=== PATIENT | female | born 1970 | race Caucasian/White ===

== ENCOUNTER 2017-08-24 11:14 | Emergency (ER) | payer OTHER, MEDICARE ==
[~2017-08-24] VITALS: Ht 167.6 cm; Wt 95.3 kg
[~2017-08-24 11:14] MED LIST: ADVAIR DISKU 11 UNIT INH; ALBUTEROL SULFAT3 M1 NEB; AMBIEN 10MG10 MG PO; AMOXICILLIN500 M3 PO; CLONAZEPAM2 MG PO; COMBIVENT RESPI1 SPR INH; FERROUS SULFAT325 M1 PO; GEODON 80 MG CA80 MG PO; MEDROL DOSEPAK1 PAC PO; NICOTINE T21 MG/24 H TOP; PREDNISONE 20MG20 MG PO; PREDNISONE10 M2 PO; PREDNISONE10 MG PO; ROBITUSSIN W/CO10 ML PO; SERTRALINE HYD100 MG PO; SINGULAIR10 MG PO; TAMIFLU 75MG75 MG PO; VENTOLIN1 PUF INH; VITAMIN D1000 IU PO; ZITHROMAX Z-PA250 M1 PO
--- NOTE | 2017-08-24 11:30 | ED GENERAL ADULT ---
History of Present Illness General Chief Complaint: Abdominal Pain/Flank Pain Stated Complaint: ABD PAIN, HEADACHE X2 DAYS Source: patient Exam Limitations: no limitations Vital Signs & Intake/Output Vital Signs & Intake/Output Vital Signs Date Time Temp Pulse Resp B/P B/P Pulse O2 O2 Flow FiO2 Mean Ox Delivery Rate 08/24 1258 78 18 155/93 94 Room Air 08/24 1123 Room Air 08/24 1122 98.6 74 18 129/86 96 Room Air Allergies Coded Allergies: cat dander (UNKNOWN 05/08/15) dog dander (UNKNOWN 05/08/15) Reconcile Medications Albuterol Sulfate (Ventolin) 1 UNIT PUF 2 PUFF INH Q4-6 PRN PRN shortness of breath (Reported) Albuterol Sulfate 3 ML NEB 3 ML NEB Q6 ASTHMA Amoxicillin 500 MG TABLET 1 TAB PO TID BRONCHITIS Cholecalciferol (Vitamin D3) 1,000 IU TAB 1,000 IU PO DAILY low vitamin d Clonazepam 2 MG TAB 1 TAB PO 4 TIMES/DAY PRN ANXIETY (Reported) Ferrous Sulfate 325 MG TAB 325 MG PO TID anemia Fluticasone-Salmeterol (Advair 100-50 Diskus) 1 UNIT INH 1 PUF INH BID asthma Montelukast Sodium (Singulair) 10 MG TAB 1 TAB PO DAILY ALLERGIES (Reported) Nicotine (Nicotine Transdermal System) 21 MG/24 HR TDM 21 MG TOP DAILY smoking cessation Oseltamivir Phosphate (Tamiflu 75MG) 75 MG CAP 75 MG PO BID flu start from 05/10 10 pm Pantoprazole Sodium 20 MG TABLET.DR 1 TAB PO DAILY EPIGASTRIC PAIN Prednisone 10 MG TABLET 1 TAB PO DAILY ASTHMA TAKE 3 TABS FOR 3 DAYS THEN TAKE 2 TABS FOR 3 DAYS THEN TAKE 1 TAB FOR 3 DAYS Prednisone 10 MG TAB 0 TAB PO DAILY asthma 3 TABS ONCE A DAY X 3 DAYS 2 TABS ONCE A DAY X 3 DAYS 1 TABS ONCE A DAY X 3 DAYS 1/2 TAB ONCE A DAY X 2 DAYS Robitussin AC (Guaifenesin-Codeine Syrup) 10 ML UDC 5 ML PO Q6P PRN COUGH SERTRALINE HCL (Sertraline Hydrochloride) 100 MG TAB 2 TAB PO DAILY MENTAL HEALTH (Reported) Ziprasidone Hydrochloride (Geodon 80 MG Cap) 80 MG CAP 1 CAP PO BID BIPOLAR DISORDER (Reported) Zolpidem Tartrate (Ambien 10MG) 10 MG TAB 1 TAB PO QPM SLEEP (Reported) Triage Note: PT COMING FROM HOME. STATES THAT SHE HAS BEEN HAVING ABD PAIN FOR SEVERAL WEEKS.STATES IT HURTS ALL OVER. DENIES N/V. ASKING FOR PAIN MEDS. STATES "I THINK I HAVE CANCER I READ UP ON MY SYMPTOMS" NO HX OF SURGERIES. PT AOX4. Triage Nurses Notes Reviewed? yes Onset: Gradual Duration: day(s): Timing: recent history Injury Environment: home Severity: moderate HPI: 46yo female with hx of asthma, bipolar disorder presents to ED complaining of epigastric abdominal pain beginning around 10:15 this morning. Patient states that she had this pain couple days ago and for the past several weeks. Patient reports associated nausea with her abdominal pain. Patient describes pain as epigastric radiating up towards chest. She also reports a headache described as "between her ears". Headache has been present for several days as well. Patient reports loose stools for about one month. Patient states she has been looking up her symptoms online and is concerned about cancer. Patient has an appointment with a GI doctor for discussion of colonoscopy coming up later this month. The patient denies fevers, chills, dyspnea, hemoptysis. (Francy Mane) Past History Travel History Traveled to [place] past 21 day No Medical History Any Pertinent Medical History? see below for history Neurological: NONE EENT: NONE Cardiovascular: hypertension Respiratory: asthma, obstructive sleep apnea Gastrointestinal: GERD Hepatic: NONE Renal: NONE Musculoskeletal: osteoarthritis, CARPAL TUNNEL SYND Psychiatric: bipolar disease, depression Endocrine: NONE Blood Disorders: NONE Cancer(s): NONE CHIEF SCIENTIST/Reproductive: NONE History of MRSA: No History of VRE: No History of CDIFF: No Surgical History Surgical History: non-contributory Psychosocial History Who do you live with Patient/Self Services at Home None What is your primary language Filipino Tobacco Use: Never used ETOH Use: occasional use Family History Hx Contributory? No (Francy Mane) Review of Systems Review of Systems Constitutional: Reports: no symptoms. EENTM: Reports: no symptoms. Respiratory: Reports: no symptoms. Cardiovascular: Reports: see HPI. GI: Reports: see HPI. Genitourinary: Reports: no symptoms. Musculoskeletal: Reports: no symptoms. Skin: Reports: no symptoms. Neurological/Psychological: Reports: see HPI. Hematologic/Endocrine: Reports: no symptoms. Immunologic/Allergic: Reports: no symptoms. All Other Systems: Reviewed and Negative (Ann Marie MATTHEWS,Francy Reynolds) Physical Exam Physical Exam General Appearance: well developed/nourished, no apparent distress, alert, awake Head: atraumatic, normal appearance Eyes: Bilateral: normal appearance. Ears, Nose, Throat: hearing grossly normal, no erythema Neck: normal inspection, supple, full range of motion Respiratory: normal breath sounds, no respiratory distress, lungs clear Cardiovascular: regular rate/rhythm Peripheral Pulses: 2+ radial (R), 2+ radial (L) Gastrointestinal: normal bowel sounds, soft, non-tender, no organomegaly Back: normal inspection, normal range of motion Extremities: normal inspection, normal range of motion Neurologic/Psych: awake, alert, oriented x 3, owner oral surgeon II-XII nml as tested Skin: intact, normal color, warm/dry Core Measures ACS in differential dx? Yes CVA/TIA Diagnosis: No Sepsis Present: No Sepsis Focused Exam Completed? No (Ann Marie MATTHEWS,Francy Reynolds) Progress Differential Diagnoses I considered the following diagnoses in my evaluation of the patient: [ACS, PE, GERD, migraine headache, tension headache, sinus disease, PUD, SBO] Plan of Care: Orders Procedure Date/time Status URINALYSIS 08/24 1139 Complete TROPONIN LEVEL 08/24 1128 Complete COMPREHENSIVE METABOLIC PANEL 08/24 1128 Complete CBC WITHOUT DIFFERENTIAL 08/24 1128 Complete EKG 08/24 1128 Active Laboratory Tests 08/24/17 1146: Urine Color STRAW, Urine Clarity HAZY H, Urine pH 6.0, Ur Specific Echo 1.015, Urine Protein NEG, Urine Ketones NEG, Urine Nitrite NEG, Urine Bilirubin NEG, Urine Urobilinogen 0.2, Ur Leukocyte Esterase SMALL H, Ur Microscopic SEDIMENT EXAMINED, Urine RBC RARE, Urine WBC 5-10 H, Ur Epithelial Cells MANY H, Urine Mucus RARE, Micro UA Comment BUDDING YEAST H, Urine Hemoglobin NEG, Urine Glucose NEG 08/24/17 1136: Anion Gap 12, Estimated GFR > 60, BUN/Creatinine Ratio 20.0, Glucose 102 H, Calcium 9.4, Total Bilirubin 0.3, AST 19, ALT 29, Alkaline Phosphatase 68, Troponin I < 0.01, Total Protein 7.1, Albumin 3.9, Globulin 3.2, Albumin/ Globulin Ratio 1.2, CBC w Diff NO MAN DIFF REQ, RBC 5.23, MCV 75.3 L, MCH 23.8 L, MCHC 31.6 L, RDW 18.7 H, MPV 9.8, Gran % 62.7, Lymphocytes % 26.2, Monocytes % 8.0, Eosinophils % 2.8, Basophils % 0.3, Absolute Granulocytes 3.8, Absolute Lymphocytes 1.6, Absolute Monocytes 0.5, Absolute Eosinophils 0.2, Absolute Basophils 0 The patient is perc negative, symptoms are less consistent with PE. EKG is in sinus rhythm, no acute ischemic changes, troponin enzyme is negative. Patient's labs are stable, non-actionable. Patient reports resolution of her pain following GI cocktail, she is requesting a meal. The patient is able to tolerate PO here in the ED. She is seen sleeping while waiting for results. Patient to begin pantoprazole and follow-up with GI for further evaluation. She is in no acute distress, nontoxic appearing, vital signs are stable. The patient was given strict return precautions which she understands and agrees with. The patient was discussed with Dr. Jewell who agrees with the plan of care. Diagnostic Imaging: Viewed by Me: Radiology Read. Discussed w/RAD: Radiology Read. Radiology Impression: PATIENT: MCKINLEY HUTTON PRESENT AGE: 46 PATIENT ACCOUNT NO: [id number] : 68 LOCATION: [facility] ORDERING PHYSICIAN: Francy MATTHEWS SERVICE DATE: 08/24/17 EXAM TYPE: RAD - XRY-CHEST XRAY, TWO VIEWS EXAMINATION: XR CHEST CLINICAL INFORMATION: Epigastric /chest pain. COMPARISON: 04/18/2017 TECHNIQUE: 2 views of the chest were obtained. FINDINGS: The lungs are well-inflated and clear. The bronchial wall thickening (airway inflammation) of 04/18/2017 appears improved/resolved. Trachea is midline in position. No evidence of interstitial disease, focal consolidation, mass, pneumothorax or pleural effusion. The cardiomediastinal silhouette and pulmonary brittani have normal size and contour. Mild dextrocurvature of the mildly degenerated thoracic spine. The examined upper abdomen is unremarkable. No pneumoperitoneum. IMPRESSION: No acute cardiopulmonary abnormality. DICTATED BY: Michele Regan MD DATE/TIME DICTATED:08/24/171300 COMPENSATION PROGRAMS MANAGER:SOHEILA DATE/TIME TRANSCRIBED:08/24/17 / 1301 CONFIDENTIAL, DO NOT COPY WITHOUT APPROPRIATE AUTHORIZATION. <Electronically signed in Other Vendor System> SIGNED BY: Michele Regan MD 08/24/17 7111 Initial ED EKG: sinus rhythm @67bpm, nonspecific ST changes Prior EKG: unchanged (11/17/15) (Ann Marie MATTHEWS,Francy Reynolds) Departure Departure Disposition: HOME OR SELF CARE Condition: Stable Clinical Impression Primary Impression: Epigastric pain Referrals: Pamela Dutta MD (PCP/Family) Additional Instructions: bEGIN Pantoprazole as prescribed as needed for abdominal pain. Call your GI doctor to make an appointment for this week if possible. Return with worsening symptoms or concerns. Please note that there might be incidental findings in your evaluation that are unrelated to the current emergency department visit. Please notify your primary care doctor about this emergency department visit in order to obtain and review all of the testing performed so that these incidental findings can be monitored as needed. If you had an x-ray performed, please understand that some fractures may not be seen on the initial set of x-rays. If your symptoms persist you might need a repeat set of x-rays to check for such a fracture. If you had a laceration evaluated, please understand that foreign bodies such as glass or wood may not be visible to the naked eye or on plain x-rays. If the wound becomes red, swollen, increasingly more painful or if there is any drainage from the wound, please have it reevaluated by a physician for the possibility of a retained foreign body. If you're unable to follow up as outlined in the discharge instructions please return to the emergency department. Thank you for choosing the [facility] Emergency Department for your care. It was a pleasure to serve you today. Departure Forms: Customer Survey General Discharge Information Prescriptions: Current Visit Scripts Pantoprazole Sodium 1 TAB PO DAILY #15 TAB (Francy Mane) PA/NAVAL AIRCREWMAN OPERATOR Co-Sign Statement Statement: ED Attending supervision documentation- I saw and evaluated the patient. I have also reviewed all the pertinent lab results and diagnostic results. I agree with the findings and the plan of care as documented in the PA's/NAVAL AIRCREWMAN OPERATOR's documentation. x I have reviewed the ED Record and agree with the PA's/NAVAL AIRCREWMAN OPERATOR's documentation. [] Additions or exceptions (if any) to the PAs/NAVAL AIRCREWMAN OPERATOR's note and plan are summarized below: [] (Best MCKNIGHT,Cleve) Critical Care Note Critical Care Note Critical Care Time: non-applicable (Ann Marie MATTHEWS,Francy Reynolds)
[2017-08-24 11:56] LABS: ABSOLUTE BASOPHIL COUNT 0 /CUMM (0.0-0.2); ABSOLUTE EOSINOPHIL COUNT 0.2 /CUMM (0.0-0.7); ABSOLUTE GRANULOCYTE CT 3.8 /CUMM (1.4-6.5); ABSOLUTE LYMPH COUNT 1.6 /CUMM (1.2-3.4); ABSOLUTE MONOCYTE COUNT 0.5 /CUMM (0.10-0.60); BASOPHIL % 0.3 % (0.0-2.0); EOSINOPHIL % 2.8 % (0-5); GRANULOCYTE % 62.7 % (42.2-75.2); HEMATOCRIT 39.4 % (37-47); MEAN CORPUSCULAR HGB 23.8 PG (27.0-31.0); MEAN CORPUSCULAR HGB CONC 31.6 G/DL (33.0-37.0); MEAN CORPUSCULAR VOLUME 75.3 FL (81.0-99.0); MEAN PLATELET VOLUME 9.8 FL (7.4-10.4); PLATELET COUNT 289 /CUMM (130-400); RBC DISTRIBUTION WIDTH 18.7 % (11.5-14.5); RED BLOOD CELL CT 5.23 /CUMM (4.20-5.40)
[2017-08-24 12:58] VITALS: BP 155/93
--- NOTE | 2017-08-24 13:09 | RADIOLOGY REPORT ---
EXAMINATION: XR CHEST CLINICAL INFORMATION: Epigastric/chest pain. COMPARISON: 04/18/2017 TECHNIQUE: 2 views of the chest were obtained. FINDINGS: The lungs are well-inflated and clear. The bronchial wall thickening (airway inflammation) of 04/18/2017 appears improved/resolved. Trachea is midline in position. No evidence of interstitial disease, focal consolidation, mass, pneumothorax or pleural effusion. The cardiomediastinal silhouette and pulmonary brittani have normal size and contour. Mild dextrocurvature of the mildly degenerated thoracic spine. The examined upper abdomen is unremarkable. No pneumoperitoneum. IMPRESSION: No acute cardiopulmonary abnormality.
[2017-08-24] MEDS ORDERED: PANTOPRAZOLE SO20 M1 PO (14:21)
== END 2017-08-24 14:33 ==
LOC: ERH 11:14
PROVIDERS: Physician Assistant
DX: R10.13 Epigastric pain (principal); R51 Headache
CPT/HCPCS: 71046; 81001; 93005; 93010; 96374; 96375; J1885; J2405

== ENCOUNTER 2017-10-20 19:25 | Emergency (ER) | payer OTHER, MEDICARE ==
[~2017-10-20 19:25] MED LIST changes: +PANTOPRAZOLE SO20 M1 PO
[2017-10-20 19:28] VITALS: BP 153/89
--- NOTE | 2017-10-20 22:07 | ED UPPER/LOWER EXTREMITY COMPL ---
History of Present Illness General Chief Complaint: Lower Extremity Problems Stated Complaint: "KNEE KEEPS GIVING OUT" Source: patient Exam Limitations: no limitations Vital Signs & Intake/Output Vital Signs & Intake/Output Vital Signs Date Time Temp Pulse Resp B/P B/P Pulse O2 O2 Flow FiO2 Mean Ox Delivery Rate 10/21 1927 98.0 108 20 153/89 94 Room Air Allergies Coded Allergies: cat dander (UNKNOWN 05/08/15) dog dander (UNKNOWN 05/08/15) Reconcile Medications Albuterol Sulfate (Ventolin) 1 UNIT PUF 2 PUFF INH Q4-6 PRN PRN shortness of breath (Reported) Albuterol Sulfate 3 ML NEB 3 ML NEB Q6 ASTHMA Amoxicillin 500 MG TABLET 1 TAB PO TID BRONCHITIS Cholecalciferol (Vitamin D3) 1,000 IU TAB 1,000 IU PO DAILY low vitamin d Clonazepam 2 MG TAB 1 TAB PO 4 TIMES/DAY PRN ANXIETY (Reported) Ferrous Sulfate 325 MG TAB 325 MG PO TID anemia Fluticasone-Salmeterol (Advair 100-50 Diskus) 1 UNIT INH 1 PUF INH BID asthma Ibuprofen 600 MG TABLET 1 TAB PO Q6P PRN PAIN with food Montelukast Sodium (Singulair) 10 MG TAB 1 TAB PO DAILY ALLERGIES (Reported) Nicotine (Nicotine Transdermal System) 21 MG/24 HR TDM 21 MG TOP DAILY smoking cessation Oseltamivir Phosphate (Tamiflu 75MG) 75 MG CAP 75 MG PO BID flu start from 05/10 10 pm Pantoprazole Sodium 20 MG TABLET.DR 1 TAB PO DAILY EPIGASTRIC PAIN Prednisone 10 MG TABLET 1 TAB PO DAILY ASTHMA TAKE 3 TABS FOR 3 DAYS THEN TAKE 2 TABS FOR 3 DAYS THEN TAKE 1 TAB FOR 3 DAYS Prednisone 10 MG TAB 0 TAB PO DAILY asthma 3 TABS ONCE A DAY X 3 DAYS 2 TABS ONCE A DAY X 3 DAYS 1 TABS ONCE A DAY X 3 DAYS 1/2 TAB ONCE A DAY X 2 DAYS Robitussin AC (Guaifenesin-Codeine Syrup) 10 ML UDC 5 ML PO Q6P PRN COUGH SERTRALINE HCL (Sertraline Hydrochloride) 100 MG TAB 2 TAB PO DAILY MENTAL HEALTH (Reported) Ziprasidone Hydrochloride (Geodon 80 MG Cap) 80 MG CAP 1 CAP PO BID BIPOLAR DISORDER (Reported) Zolpidem Tartrate (Ambien 10MG) 10 MG TAB 1 TAB PO QPM SLEEP (Reported) Triage Note: PT TO ED C/O LEFT KNEE PAIN FOR 2 WEEKS AND LEFT EAR PAIN SINCE LAST NIGHT. DID NOT CALL PCP. PT DENIES INJURY TO LEFT KNEE. PMH OF ARTHRITIS. IS 5' 0" AND 275 LBS. PT DENIES RECENT FALLS. Triage Nurses Notes Reviewed? yes HPI: Patient presents for evaluation of a left knee left hip and left ankle pain that began about 2 weeks ago. Patient states the pain began while she was walking and she has had more or less constant pain since. Patient states she has begun falling particularly today because the knee "gives out". Patient states that she is experiencing left ankle swelling as well. The patient is a severe sharp stabbing pain that worsens with movement and ambulation. The pain is unresponsive to ibuprofen [id number]. Patient denies any prior history of left lower extremity injury or surgery. Past History Travel History Traveled to [place] past 21 day No Medical History Any Pertinent Medical History? see below for history Neurological: NONE EENT: NONE Cardiovascular: hypertension Respiratory: asthma, obstructive sleep apnea Gastrointestinal: GERD Hepatic: NONE Renal: NONE Musculoskeletal: osteoarthritis, CARPAL TUNNEL SYND Psychiatric: bipolar disease, depression Endocrine: obesity Blood Disorders: NONE Cancer(s): NONE POWDER COMPOUNDER/Reproductive: NONE History of MRSA: No History of VRE: No History of CDIFF: No Surgical History Surgical History: non-contributory Psychosocial History Who do you live with Patient/Self Services at Home None What is your primary language Lao Tobacco Use: Quit >30 days ago ETOH Use: occasional use Illicit Drug Use: denies illicit drug use Family History Hx Contributory? No Review of Systems Review of Systems Constitutional: Reports: no symptoms. EENTM: Reports: no symptoms. Respiratory: Reports: no symptoms. Cardiovascular: Reports: no symptoms. Gastrointestinal/Abdominal: Reports: no symptoms. Genitourinary: Reports: no symptoms. Musculoskeletal: Reports: see HPI. Skin: Reports: no symptoms. Neurological/Psychological: Reports: no symptoms. Hematologic/Endocrine: Reports: no symptoms. Immunological: Reports: no symptoms. All Other Systems: Reviewed and Negative Physical Exam Physical Exam General Appearance: SEE BELOW Comments: Exam limited as the patient needs to leave because of her ride Gen.: Well-nourished, well-developed, no acute respiratory distress. Head: Normocephalic, atraumatic. Eyes: Normal inspection bilaterally Ears: Normal inspection bilaterally Nose: Normal inspection Throat/mouth : Moist mucosa Neck: Supple, full range of motion, no goiter Heart: Regular rate and rhythm Lungs: Quiet respirations Back: Normal range of motion Extremities: Left lower extremity: Mild to moderate left ankle pitting edema without erythema. The left lower cavity is neurovascularly intact. Left knee: Pain with palpation and range of motion, no drawer or Mary Lou sign, no apparent effusion, left hip: No apparent pain with range of motion although the patient has tenderness in the area of the left iliac wing. Neurologic: Cranial nerves grossly intact, speech is clear Skin: warm and dry Psychiatric: Calm, cooperative, no apparent delusions or hallucinations Progress Differential Diagnosis: sprain, strain, septic arthritis, hemarthrosis, rheumatoid versus osteo- arthritis Plan of Care: SEE D/C INSTUCTIONS Comments: Gregoria declined imaging studies in the emergency department because of time constraints. Departure Departure Disposition: HOME OR SELF CARE Condition: Stable Clinical Impression Primary Impression: Pain of left lower extremity Referrals: Juan Rose MD (PCP/Family) Additional Instructions: Rest your left leg and avoid exertion heavy lifting or excessive ambulation. Ibuprofen as prescribed. Follow-up with your primary care physician or the news videotape editor listed for reevaluation this week. Return if any concerns or sudden worsening. Departure Forms: Customer Survey General Discharge Information Prescriptions: Current Visit Scripts Ibuprofen 1 TAB PO Q6P PRN PAIN #20 TAB with food
[2017-10-20] MEDS ORDERED: IBUPROFEN600 M1 PO (22:21)
== END 2017-10-20 22:34 ==
LOC: ERH 19:25
DX: M79.605 Pain in left leg (principal); I10 Essential (primary) hypertension; G47.33 Obstructive sleep apnea (adult) (pediatric); J45.909 Unspecified asthma, uncomplicated; K21.9 Gastro-esophageal reflux disease without esophagitis; F31.9 Bipolar disorder, unspecified; F32.9 Major depressive disorder, single episode, unspecified

== ENCOUNTER 2017-11-14 10:54 | Emergency (ER) | payer OTHER, MEDICARE ==
[~2017-11-14] VITALS: Ht 152.4 cm; Wt 124.7 kg
[~2017-11-14 10:54] MED LIST changes: +IBUPROFEN600 M1 PO
--- NOTE | 2017-11-14 11:23 | ED GENERAL ADULT ---
History of Present Illness General Chief Complaint: General Adult Stated Complaint: THROAT PAIN/ LEFT KNEE PAIN Source: patient, old records Exam Limitations: no limitations Vital Signs & Intake/Output Vital Signs & Intake/Output Vital Signs Date Time Temp Pulse Resp B/P B/P Pulse O2 O2 Flow FiO2 Mean Ox Delivery Rate 11/14 1513 89 19 189/111 91 Room Air 11/14 1118 97.9 90 18 135/85 99 Room Air Allergies Coded Allergies: cat dander (UNKNOWN 05/08/15) dog dander (UNKNOWN 05/08/15) Reconcile Medications Albuterol Sulfate (Ventolin) 1 UNIT PUF 2 PUFF INH Q4-6 PRN PRN shortness of breath (Reported) Albuterol Sulfate 3 ML NEB 3 ML NEB Q6 ASTHMA Diclofenac Sodium (Voltaren) 1 % GEL..GRAM. 1 GM TOP 4 TIMES/DAY PRN pain apply to affected area(s) Ibuprofen 600 MG TABLET 1 TAB PO Q6P PRN PAIN with food Montelukast Sodium (Singulair) 10 MG TAB 1 TAB PO DAILY ALLERGIES (Reported) Pantoprazole Sodium 20 MG TABLET.DR 1 TAB PO DAILY EPIGASTRIC PAIN SERTRALINE HCL (Sertraline Hydrochloride) 100 MG TAB 2 TAB PO DAILY MENTAL HEALTH (Reported) Trazodone HCl 100 MG TABLET 1 TAB PO QPM sleep (Reported) Triage Nurses Notes Reviewed? yes Onset: Gradual Duration: week(s): Severity: moderate HPI: 46YO FEMALE presents to ED complaining of bilateral jaw/mouth pain, ear pain, left knee pain x over one month. Patient was seen here in the ED as well as at her primary care doctor's office for these symptoms however her symptoms have persisted. Pain in left knee is increasing, patient states she can barely walk. The patient has never seen an orthopedic doctor for her knee pain. Patient states her friend told her she may have TMJ syndrome and need to see a dentist however the patient has not yet followed up with a dentist. No rhinorrhea or mucous production. Patient denies cough, fevers, injury/trauma, chest pain. (Ann Marie MATTHEWS,Francy Reynolds) Past History Travel History Traveled to [place] past 21 day No Medical History Any Pertinent Medical History? 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 No (Francy Mane) Review of Systems Review of Systems Constitutional: Reports: no symptoms. EENTM: Reports: see HPI. Respiratory: Reports: no symptoms. Cardiovascular: Reports: no symptoms. GI: Reports: no symptoms. Genitourinary: Reports: no symptoms. Musculoskeletal: Reports: see HPI. Skin: Reports: no symptoms. Neurological/Psychological: Reports: no symptoms. Hematologic/Endocrine: Reports: no symptoms. Immunologic/Allergic: Reports: no symptoms. All Other Systems: Reviewed and Negative (Francy Mane) Physical Exam Physical Exam General Appearance: well developed/nourished, no apparent distress, alert, awake Head: atraumatic, normal appearance Eyes: Bilateral: normal appearance. Ears, Nose, Throat: normal ENT inspection, hearing grossly normal, mild pharyngeal erythema, no significant tonsillar swelling, bilateral TMJ tenderness , no swelling, no trismus Neck: normal inspection, supple, full range of motion, no swelling Respiratory: normal breath sounds, no respiratory distress, lungs clear Cardiovascular: regular rate/rhythm Peripheral Pulses: 2+ dorsalis pedis (L) Back: normal inspection, normal range of motion Extremities: left knee: tenderness to medial knee without deformity or swelling, no crepitus, FROM Neurologic/Psych: awake, alert, oriented x 3 Skin: intact, normal color, warm/dry Core Measures ACS in differential dx? No CVA/TIA Diagnosis: No Sepsis Present: No Sepsis Focused Exam Completed? No (Francy Mane) Progress Differential Diagnoses I considered the following diagnoses in my evaluation of the patient: [strep pharyngitis, TMJ syndrome, gingivitis, arthritis, fracture, effusion] Plan of Care: Orders Procedure Date/time Status THROAT CULTURE W/QUICK STREP 11/14 6513 Active Patient is requesting Percocet, she states that ladr-[id number] medications do not help relieve her symptoms. I told the patient that based on her stable/ chronic findings today, narcotic medications are inappropriate. I offered the patient Toradol which she accepts. Rapid strep test is negative. Patient has no swelling, no trismus, she is afebrile. Her symptoms have been present for greater than 1 month. Infectious etiology is unlikely. Patient's TMJ pain is reproducible on physical exam. Patient informed that she will require follow-up with orthopedic and denist. She was also instructed to follow up with PCP. Patient is upset that I will not prescribe her narcotic medications. She is ambulatory here in the ED. Neurovascularly intact. Diagnostic Imaging: Viewed by Me: Radiology Read. Discussed w/RAD: Radiology Read. Radiology Impression: PATIENT: MCKINLEY HUTTON PRESENT AGE: 46 PATIENT ACCOUNT NO: [id number] : 68 LOCATION: [facility] ORDERING PHYSICIAN: Francy MATTHEWS SERVICE DATE: 11/14/17 EXAM TYPE: RAD - XRY-KNEE COMPLETE LEFT EXAMINATION: XR KNEE, LEFT CLINICAL INFORMATION: Knee pain. Rule out fracture, arthritis. COMPARISON: None TECHNIQUE: AP, lateral, and both oblique views of the left knee. FINDINGS: Mild tricompartmental osteoarthritis is characterized by small marginal osteophytes as well as mild medial compartment joint space narrowing. No fracture or malalignment. Bone mineralization appears normal. Moderate-sized joint effusion. Mild soft tissue swelling. IMPRESSION: 1. Moderate-sized joint effusion with soft tissue swelling. 2. No acute fracture or malalignment. 3. Mild tricompartmental osteoarthritis, most pronounced in the medial compartment. DICTATED BY: Prakash Kaufman MD DATE/TIME DICTATED:11/14/171219 REGIONAL ACCOUNT DIRECTOR:SOHEILA DATE/TIME TRANSCRIBED:11/14/171219 CONFIDENTIAL, DO NOT COPY WITHOUT APPROPRIATE AUTHORIZATION. <Electronically signed in Other Vendor System> SIGNED BY: Prakash Kaufman MD 11/14/171223 Initial ED EKG: none (Ann Marie MATTHEWS,Francy Reynolds) Departure Departure Disposition: HOME OR SELF CARE Condition: Stable Clinical Impression Primary Impression: Knee pain Qualifiers: Chronicity: chronic Laterality: left Qualified Codes: M25.562 - Pain in left knee; G89.29 - Other chronic pain Secondary Impressions: Mouth pain Referrals: Juan Rose MD (PCP/Family) Cal Garcia MD Additional Instructions: Follow up with the orthopedic physicican regarding your knee pain. Follow up with dentist regarding pain in your mouth and jaw. Also see your primary care doctor. Return with worsening symptoms or concernS. Please note that there might be incidental findings in your evaluation that are unrelated to the current emergency department visit. Please notify your primary care doctor about this emergency department visit in order to obtain and review all of the testing performed so that these incidental findings can be monitored as needed. If you had an x-ray performed, please understand that some fractures may not be seen on the initial set of x-rays. If your symptoms persist you might need a repeat set of x-rays to check for such a fracture. If you had a laceration evaluated, please understand that foreign bodies such as glass or wood may not be visible to the naked eye or on plain x-rays. If the wound becomes red, swollen, increasingly more painful or if there is any drainage from the wound, please have it reevaluated by a physician for the possibility of a retained foreign body. If you're unable to follow up as outlined in the discharge instructions please return to the emergency department. Thank you for choosing the [facility] Emergency Department for your care. It was a pleasure to serve you today. Departure Forms: Customer Survey General Discharge Information Prescriptions: Current Visit Scripts Diclofenac Sodium (Voltaren) 1 GM TOP 4 TIMES/DAY PRN pain #1 TUBE apply to affected area(s) (Francy Mane) PA/IMPORT CUSTOMS CLEARING AGENT Co-Sign Statement Statement: ED Attending supervision documentation- [] I saw and evaluated the patient. I have also reviewed all the pertinent lab results and diagnostic results. I agree with the findings and the plan of care as documented in the PA's/IMPORT CUSTOMS CLEARING AGENT's documentation. X] I have reviewed the ED Record and agree with the PA's/IMPORT CUSTOMS CLEARING AGENT's documentation. [] Additions or exceptions (if any) to the PAs/IMPORT CUSTOMS CLEARING AGENT's note and plan are summarized below: [] (Ferny Anne DO) Critical Care Note Critical Care Note Critical Care Time: non-applicable (Francy Mane)
--- NOTE | 2017-11-14 12:24 | RADIOLOGY REPORT ---
EXAMINATION: XR KNEE, LEFT CLINICAL INFORMATION: Knee pain. Rule out fracture, arthritis. COMPARISON: None TECHNIQUE: AP, lateral, and both oblique views of the left knee. FINDINGS: Mild tricompartmental osteoarthritis is characterized by small marginal osteophytes as well as mild medial compartment joint space narrowing. No fracture or malalignment. Bone mineralization appears normal. Moderate-sized joint effusion. Mild soft tissue swelling. IMPRESSION: 1. Moderate-sized joint effusion with soft tissue swelling. 2. No acute fracture or malalignment. 3. Mild tricompartmental osteoarthritis, most pronounced in the medial compartment.
[2017-11-14] MEDS ORDERED: TRAZODONE HCL100 M1 PO (13:01)
[2017-11-14] MEDS ORDERED: VOLTAREN100 GM TOP (13:34)
[2017-11-14 15:13] VITALS: BP 189/111
== END 2017-11-14 15:14 ==
LOC: ERH 10:54
DX: M25.562 Pain in left knee (principal); K13.79 Other lesions of oral mucosa; H92.09 Otalgia, unspecified ear; I10 Essential (primary) hypertension
CPT/HCPCS: 73562-LT; 96372; J1885